=== PATIENT | male | born 1970 | race Caucasian/White ===

== ENCOUNTER 2024-02-22 19:03 | Inpatient (IN) | payer BC, SELFPAY ==
[2024-02-22] VITALS (11 sets, daily range): BP systolic 105–131; BP diastolic 64–78; PULSE 87–105; RESP 16–18; TEMP 36.6–36.8; O2SAT 92–98; BMI 35.5
--- NOTE | 2024-02-22 19:36 | EKG12_ITS ---
Test Reason : EDEMA Blood Pressure : / mmHG Vent. Rate : 090 BPM Atrial Rate : 090 BPM P-R Int : 144 ms QRS Dur : 088 ms QT Int : 360 ms P-R-T Axes : 016 -10 025 degrees QTc Int : 440 ms Normal sinus rhythm Normal ECG Confirmed by BRIGIDA KHAN, TIFFANI ([id number]), video news editor CECIL LOPEZ ([id number]) on 02/23/2024 1:52:37 PM Referred By: Confirmed By:TIFFANI ALLRED MD
--- NOTE | 2024-02-22 19:37 | EDS_ITS ---
HPI History of Present Illness Chief Complaint: Edema Detail of Chief Complaint: Leg swelling and shortness of breath Informant: patient Narrative Narrative: Patient presents with leg swelling that has had for several weeks. Patient also has been more short of breath with activity and exertion in that time.. Patient also is a heavy drinker and would drink 20 fireball shots a day for 3 to 4 weeks. Patient states now he is trying to cut back and drinking 3 hard mikes lemonade's that are tall daily. recently noticed that he is got some yellow around his eyes. Patient today noticed some increased abdominal distention. Patient would like to detox from alcohol. Has had multiple detox attempts in the past. He denies chest pain. He denies orthopnea. Denies recent travel or surgery. No heart history and no history of CHF. [facility] Medical History (Updated 02/22/24 @ 22:[address] Di Ahuja DO) Alcoholism Hypertension Hyperlipidemia Allergy/AdvReac Type Severity Reaction Status Date / Time lisinopril Allergy Mild COUGH Verified 02/22/24 19:07 Family History no significant family his Surgical History (Updated 02/22/24 @ 19:56 by Helen Zimmerman) History of splenectomy Social History (Updated 02/22/24 @ 19:55 by Helen Zimmerman) household members: spouse housing: house Smoking Status: Current some day smoker tobacco type: cigarettes ROS ROS ED Review of Systems ROS Unobtainable: other Constitutional Constitutional ED: Reports lethargy; Denies chills, fever(s), sweats or weight loss Eyes Eyes: Reports other Details: Yellow discoloration ; Denies blurry vision, change in vision or diplopia ENT ENT ED: Denies rhinorrhea or sore throat Cardiovascular Cardiovascular: Denies chest pain, orthopnea or racing heartbeat Respiratory/Chest Respiratory/Chest: Reports dyspnea and dyspnea on exertion; Denies cough, ort hopnea or sputum Gastrointestinal Gastrointestinal: Reports nausea and other Details: Abdominal distention ; Denies abdominal pain, diarrhea or vomiting Genitourinary Genitourinary ED: Denies dysuria, hematuria or urinary frequency Musculoskeletal Musculoskeletal: Denies arthralgias, back pain, myalgias or neck pain Integumentary Denies abscess, Abrasions or rash Neurologic Neurologic: Denies headache(s) or weakness Psychiatric Psychiatric: Denies anxiety, depression or suicidal thoughts Endocrine Endocrinology: Denies polydipsia, polyphagia or polyuria Hematologic/Lymphatic Hematologic/Lymphatic: Denies easy bleeding, easy bruising or lymphadenopathy Allergic/Immunologic Allergic/Immunologic ED: Denies mouth swelling, tongue swelling or urticaria EXAM Physical Exam Const Vital Signs: 02/22/24 19:04 02/22/24 19:06 02/22/24 19:55 Temperature 98.2 F 98.2 F Temperature Source Temporal Temporal Pulse Rate 100 102 H Respiratory Rate 17 16 Respiratory Pattern Normal Blood Pressure 105/67 105/67 Blood Pressure Mean 79 79 Pulse Ox 95 94 Oxygen Delivery Method Room Air Room Air 02/22/24 20:09 02/22/24 21:00 02/22/24 22:00 Temperature Temperature Source Pulse Rate 93 105 H 89 Respiratory Rate 18 17 18 Respiratory Pattern Blood Pressure 115/72 131/77 H 119/73 Blood Pressure Mean 86 95 88 Pulse Ox 96 98 96 Oxygen Delivery Method Room Air Room Air Positive well nourished and well developed General Appearance ED: well developed and NAD HEENT Reports TM's clear and moist mucous membranes HEENT Narrative: Mild scleral icterus normocephalic and atraumatic; Negative for trauma or tenderness Tympanic Membrane ED: Yes TM's clear Eyes PERRL and EOMs intact bilaterally Eyes Narrative: Mild scleral icterus General Eye ED: Negative for pale conjunctiva or scleral icterus Neck no lymphadenopathy, supple and no JVD General: Negative for tenderness Chest Wall inspection of chest normal and palpation of chest normal Chest: Negative for tenderness Resp normal respiratory effort and clear to auscultation bilaterally Effort and Inspection: Negative for respiratory distress or pain with movement Auscultation: Negative for rhonchi, wheezes or diminished lung sounds Cardio regular rate, regular rhythm, S1 normal heart sound, S2 normal heart sound and no murmurs Peripheral Pulses: pulses 2+ throughout GI normal to inspection, nondistended, normoactive bowel sounds, soft to palpation, non-distended and no masses GI Narrative: Abdomen distended and slightly tender throughout. There is no rebound, rigidity, or peritoneal signs. Mild fluid wave. Back/Spine no CVA tenderness and no thoracic nor lumbar tenderness Extremity Extremity Narrative: +2 edema both lower extremities General Extremety ED: Negative for edema General Extremity: Negative for edema Neuro oriented x3, CN's II-XII intact bilaterally, no sensory deficits noted and gait normal Sensorium / Orientation: awake, alert, oriented to person, oriented to place and oriented to time Motor Exam: strength 5/5 throughout and strength abnormal Psych mental status grossly normal Skin no rashes or lesions noted and no wounds MDM MDM MDM Narrative Medical decision making narrative: Patient presents requesting detox from alcohol. Also complains of dyspnea has been ongoing especially with exertion. No chest pain. Patient is an alcoholic and has gone through detox multiple times in the past. Denies recent surgery or travel. No history of PE or DVT. In the differential would be PE or DVT, CHF, renal failure, cirrhosis of the liver with ascites, obstructive biliary pattern. IV line established. CBC with differential white count 12.9 with hemoglobin 11.2 and platelet count of 154. Chemistries show low sodium of 122 with potassium 3.6 and chloride of 88. BUN 10 and creatinine 1.12. Glucose elevated to 66. Total bilirubin was 5.4. Alkaline phosphatase was 1072. ALT and AST p ending. Troponin was normal at 9. BNP was normal at 53. Albumin was low at 1.7. Lipase is low at 45. Urinalysis unremarkable. Toxicology screen negative. Alcohol was 72. We obtained a CT scan of the abdomen pelvis with IV contrast that showed small amount of ascites, absent spleen, and fatty infiltration of the liver without cirrhosis being excluded. Chest x-ray unremarkable. Venous Doppler of lower extremities was negative for DVT. Patient received a milligram of Ativan as he was complaining of feeling claustrophobic so therefore I gave him a milligram prior to obtaining the CT sca n of the abdomen pelvis. Case will be discussed with hospitalist to evaluate patient for admission Lab Data Attestation: I reviewed the patient's lab results. Labs: Laboratory Results - last 24 hr 02/22/24 02/22/24 19:40 21:32 WBC 12.9 H RBC 3.24 L Hgb 11.2 L Hct 31.2 L MCV 96.3 H MCH 34.6 H MCHC 35.9 RDW Std Deviation 62.4 H RDW Coeff of Pérez 17.9 H Plt Count 154 MPV 11.6 Immature Gran % (Auto) 2.300 H Neut % (Auto) 61.9 Lymph % (Auto) 25.4 [place] % (Auto) 9.4 Eos % (Auto) 0.5 Baso % (Auto) 0.5 Absolute Neuts (auto) 8.0 H Absolute Lymphs (auto) 3.26 Nucleated RBC % 0.5 Platelet Estimate ADEQUATE Plt Morphology Comment LARGE RBC Morphology N CHROM Anisocytosis 1+ Macrocytosis 1+ Ovalocytes RARE Sodium 122 L Potassium 3.6 Chloride 88 L Carbon Dioxide 22.0 Anion Gap 12 BUN 10 Creatinine 1.12 Estim Creat Clear Calc 81.45 Est GFR (MDRD) Af Amer 87 Est GFR (MDRD) Non-Af 72 BUN/Creatinine Ratio 8.9 L Glucose 266 H Calcium 7.8 L Total Bilirubin 5.40 H Alkaline Phosphatase 1072 H Troponin I High Sens 9 B-Natriuretic Peptide 53.4 Total Protein 5.1 L Albumin 1.7 L Globulin 3.4 Albumin/Globulin Ratio 0.5 L Lipase 45 Urine Color Yellow Urine Clarity Sl. Cloudy Urine pH 6.5 Ur Specific [place] 1.005 Urine Protein Negative Urine Glucose (UA) Normal Urine Ketones Negative Urine Occult Blood Negative Urine Nitrite Negative Urine Bilirubin 1 H Urine Urobilinogen 1 H Ur Leukocyte Esterase Negative Urine RBC 0 SEEN Urine WBC 0-5 SEEN Ur Squamous Epith Cells 0 SEEN Urine Bacteria RARE Urine Mucus 0 SEEN Urine Opiates Screen NEGATIVE Urine Methadone Screen NEGATIVE Ur Barbiturates Screen NEGATIVE Ur Phencyclidine Scrn NEGATIVE Ur Amphetamines Screen NEGATIVE MDMA (Ecstasy) Screen NEGATIVE U Benzodiazepines Scrn NEGATIVE Urine Cocaine Screen NEGATIVE U Cannabinoids Screen NEGATIVE Ur Drug Screen Comment Ethyl Alcohol 72.0 Radiography Diagnostic Testing: Clinical Impression(s) from Imaging Studies Venous Duplex 02/22/24 19:38 IMPRESSION: No evidence of DVT. Electronically Signed: Ernst Negrete MD at 20:51 EDT , Chest X-Ray 02/22/24 19:52 IMPRESSION: Normal x-ray examination of the chest. Electronically Signed: Ernst Negrete MD at 20:49 EDT , Abdomen/Pelvis CT 02/22/24 20:50 IMPRESSION: 1. Mild ascites in all quadrants. 2. Abnormal liver with fatty infiltration. Cirrhosis is not excluded. 3. Absent spleen. Electronically Signed: Ernst Negrete MD at 22:07 EDT , 1 view chest x-ray obtained interpreted by myself as no evidence of infiltrate or pneumothorax or acute disease process. Radiology in agreement. EKG Initial EKG: Attestation: I personally reviewed and interpreted this EKG as follows: Comments: Sinus rhythm with ventricular rate of 90 bpm with no acute ST segment changes Discharge Plan Triage Chief Complaint: Edema ED Provider: Di Ahuja Dx/Rx/DC Orders Clinical Impression: Alcohol abuse, Admitted to alcohol detoxification center, Acute hyponatremia, Cirrhosis of liver, Hyperbilirubinemia Primary Care Provider: Monalisa Mclaughlin Referrals: Monalisa Mclaughlin MD [Primary Care Provider] - Print Language: Kiswahili Disposition Disposition: Acute Care Hospital [facility]
--- NOTE | 2024-02-22 19:38 | US_ITS ---
STUDY: VENOUS DOPPLER ULTRASOUND - BILATERAL LOWER EXTREMITIES REASON FOR EXAM: Male, 54 years old. BILATERAL SWELLING TECHNIQUE: Ultrasound evaluation of the deep vein system to include hernandez-scale imaging and compression was performed. Hernandez-scale imaging and Doppler sonographic evaluation, including duplex spectral analysis and qualitative color flow sonography, was performed. COMPARISON: None. FINDINGS: RIGHT LEG Common Femoral Vein: Normal compression, spontaneity and augmentation. Normal color Doppler. Common Femoral Vein/Greater Saphenous Junction: Normal compression, spontaneity and augmentation. Normal color Doppler. Femoral Proximal: Normal compression, spontaneity and augmentation. Normal color Doppler. Femoral Middle: Normal compression, spontaneity and augmentation. Normal color Doppler. Femoral Distal: Normal compression, spontaneity and augmentation. Normal color Doppler. Popliteal Vein: Normal compression, spontaneity and augmentation. Normal color Doppler. Posterior Tibial Vein: Normal compression, spontaneity and augmentation. Normal color Doppler. Peroneal Vein: Normal compression, spontaneity and augmentation. Normal color Doppler. LEFT LEG Common Femoral Vein: Normal compression, spontaneity and augmentation. Normal color Doppler. Common Femoral Vein/Greater Saphenous Junction: Normal compression, spontaneity and augmentation. Normal color Doppler. Femoral Proximal: Normal compression, spontaneity and augmentation. Normal color Doppler. Femoral Middle: Normal compression, spontaneity and augmentation. Normal color Doppler. Femoral Distal: Normal compression, spontaneity and augmentation. Normal color Doppler. Popliteal Vein: Normal compression, spontaneity and augmentation. Normal color Doppler. Posterior Tibial Vein: Normal compression, spontaneity and augmentation. Normal color Doppler. Peroneal Vein: Normal compression, spontaneity and augmentation. Normal color Doppler. US/Venous Duplex Imag/Andrés Extrem IMPRESSION: No evidence of DVT. Electronically Signed: Ernst Negrete MD at 20:51 EDT ,
[2024-02-22] MEDS: 0.9% Normal Saline (1000mL) 1,000 ML 15 ML IV (19:45)
[2024-02-22] MEDS: Ondansetron 4 MG/2 ML Vial IV (19:45)
[2024-02-22 19:51] LABS: Absolute Lymphocyte Count 3.26 X10^3/uL (0.83-4.51); Basophil# 0.07 X10^3/uL; Basophil% 0.5 % (0-1); Eosinophil# 0.06 X10^3/uL; Eosinophils% 0.5 % (0-5); Hematocrit 31.2 % (40-54); Hemoglobin 11.2 g/dL (13.0-16.5); Lymphocyte # 3.26 X10^3/ul (0.83-4.51); Lymphocyte % 25.4 % (19-41); Mean Corp Hgb Conc 35.9 g/dL (32-36); Mean Corpuscular Hgb 34.6 pg (27.0-32.0); Mean Corpuscular Volume 96.3 fL (80-94); Mean Platelet Vol. 11.6 fl (6.2-12.0); Monocyte# 1.21 X10^3/uL; Monocyte% 9.4 % (0-10); NRBC Flagged by Analyzer 0.5 % (0-5); Neutrophil # 7.96 X10^3/uL (2.7-7.7); Neutrophil % 61.9 % (47-70); POSITIVE MORPHOLOGY YES; Platelet Count 154 K/mm3 (150-450); RBC Distribution Width CV 17.9 % (11.6-14.6); RBC Distribution Width SD 62.4 fl (35.1-43.9); Red Blood Count 3.24 M/mm3 (4.6-6.2); White Blood Count 12.9 K/mm3 (4.4-11.0)
--- NOTE | 2024-02-22 19:52 | RAD_ITS ---
STUDY: X-RAY CHEST REASON FOR EXAM: Male, 54 years old. dyspnea TECHNIQUE: Single PA view of the chest. COMPARISON: None. FINDINGS: The lungs are clear and expanded. There is no demonstrated pleural abnormality. Normal size heart. Normal mediastinum and summer. Normal visualized pulmonary arteries. Normal visualized aortic arch and descending thoracic aorta. Normal visualized thoracic spine. Normal visualized ribs, clavicles, and shoulders. There is no demonstrated abnormality of the visualized soft tissue structures of the upper abdomen. RAD/Chest 1 View (Portable) IMPRESSION: Normal x-ray examination of the chest. Electronically Signed: Ernst Negrete MD at 20:49 EDT ,
[2024-02-22 20:10] LABS: Differential Indicated SCAN CRITERIA MET
[2024-02-22 20:14] LABS: Anisocytosis 1+; Macrocytosis 1+; Ovalocyte RARE; Platelet Estimate ADEQUATE (ADEQ); Platelet Morphology LARGE; Red Cell Morphology N CHROM NORMAL (NORM C&C)
[2024-02-22 20:23] LABS: BNP,B-Type NATRIURETIC PEPTIDE 53.4 pg/mL (0-100)
--- NOTE | 2024-02-22 20:50 | CT_ITS ---
EXAM: CT ABDOMEN AND PELVIS WITH INTRAVENOUS CONTRAST CLINICAL INDICATION: ABDOMINAL DISTENTION TECHNIQUE: Helically acquired images were obtained of the abdomen and pelvis with intravenous contrast. This CT exam was performed using one or more of the following dose reduction techniques: automated exposure control, adjustment of the mA and/or kV according to patient size, and/or use of iterative reconstruction technique. CONTRAST: IV 100mL [id number] RADIATION DOSE: CTDIvol = 16.66 mGy, DLP = 1192.22 mGy-cm COMPARISON: No relevant prior studies available. FINDINGS: LOWER THORAX: Unremarkable. Lung bases are clear. No cardiomegaly. No significant pericardial effusion. ABDOMEN: LIVER: Fatty infiltration of the liver with hepatomegaly and coarsened parenchymal pattern. Question cirrhosis. GALLBLADDER AND BILE DUCTS: Cholecystectomy. No intra- or extrahepatic biliary ductal dilation. PANCREAS: Unremarkable. No focal cystic or solid mass. SPLEEN: Spleen is absent except for a probable 2.3 cm splenule under the left hemidiaphragm. ADRENALS: Unremarkable. No nodules. KIDNEYS AND URETERS: No acute abnormalities of the kidneys. Left kidney has small simple cysts as much as 2.5 cm. Tiny nonobstructing stone in the upper pole of the left kidney. Normal renal size and position. STOMACH AND BOWEL: Evaluation of the GI tract is limited by absence of oral contrast. Cannot exclude stomach wall thickening. No dilated loops of bowel or evidence for obstruction. Cannot exclude segmental thickening of the gomez of the small or large bowel. Cannot exclude enteritis or colitis. Moderate diffuse fecal retention. Diverticulosis without definite diverticulitis. PELVIS: APPENDIX: No evidence of acute appendicitis. BLADDER: Unremarkable. REPRODUCTIVE: Unremarkable as visualized. No mass. ABDOMEN and PELVIS: INTRAPERITONEAL SPACE: Mild ascites in all quadrants. No free air. BONES/JOINTS: Compression fracture of T11 likely old. No suspicious lytic or blastic abnormality. SOFT TISSUES: Small fat-containing right inguinal hernia. VASCULATURE: Calcified plaque of the aorta. Abdominal aorta is non-dilated. LYMPH NODES: Unremarkable. No enlarged lymph nodes. CT/Abdomen/Pelvis W IV Cont ONLY IMPRESSION: 1. Mild ascites in all quadrants. 2. Abnormal liver with fatty infiltration. Cirrhosis is not excluded. 3. Absent spleen. Electronically Signed: Ernst Negrete MD at 22:07 EDT ,
[2024-02-22 21:06] LABS: ALB/GLOB Ratio 0.5 RATIO (0.9-2.4); Albumin, Serum 1.7 g/dL (3.2-5.0); Alkaline Phosphatase 1072 U/L (45-117); Anion Gap 12 (5-15); BUN 10 mg/dL (7-18); BUN/Creat Ratio 8.9 RATIO (10-20); Calcium,Total 7.8 mg/dL (8.5-10.1); Chloride 88 mmol/L (98-107); Creatinine, Serum 1.12 mg/dL (0.70-1.30); EST Glomerular Filtration Rate 72 mL/min (>60); Est Glom Filt Rate - Afr Amer 87 mL/min (>60); Estimated Creatinine Clearance 81.45 ml/min; Globulin 3.4 g/dL (2.2-4.2); Glucose 266 mg/dL (74-106); Lipase 45 U/L (13-75); Potassium 3.6 mmol/L (3.5-5.1); Protein, Total 5.1 g/dL (6.4-8.2); Sodium Level 122 mmol/L (136-145); Troponin-I HS 9 pg/mL (3.0-78.0)
[2024-02-22] MEDS: LORazepam 2 MG/ML Syringe 1 MG IV (21:25)
[2024-02-22 21:36] LABS: Mucous, Urine 0 SEEN /hpf (<or=2+); Red Blood Cells-Urine 0 SEEN /hpf (0-5); Squamous Epithelial Cells - UA 0 SEEN /hpf (0-5)
[2024-02-22 21:41] LABS: Color, Urine Yellow (Yellow); Glucose, Dipstick Normal (Normal); Ketone-Dipstick Negative (Negative); Leukocyte Esterase-Dipstick Negative /ul (Negative); Nitrite-Dipstick Negative (Negative); Occult Blood-Urine Negative /ul (Negative); Protein-Dipstick Negative (Negative); Specific Gravity, Urine 1.005 (1.002-1.030); Urine Clarity Sl. Cloudy (Clear); Urine Urobilinogen 1 mg/dl (Normal); Urine pH 6.5 (5.0 - 8.0)
[2024-02-22 21:58] LABS: Urine Bilirubin Dipstick 1 mg/dL (Negative)
[2024-02-22 22:01] LABS: Bacteria RARE /hpf (None Seen); White Blood Cells 0-5 SEEN /hpf (0-5)
[2024-02-22 22:03] LABS: Amphetamine Urine VISTA NEGATIVE (<1000 ng/mL); Barbiturate Urine VISTA NEGATIVE (< 200 ng/mL); Benzodiazepine Urine VISTA NEGATIVE (< 200 ng/mL); Cocaine Urine VISTA NEGATIVE (< 300 ng/mL); Ecstacy Urine VISTA NEGATIVE (< 500 ng/mL); Methadone Urine VISTA NEGATIVE (< 300 ng/mL); PCP Urine VISTA NEGATIVE (< 25 ng/mL); THC Urine VISTA NEGATIVE (< 50 ng/mL); Vista UDS pH Range 6
--- NOTE | 2024-02-22 22:29 | PCM.HP.STD ---
HPI - General General Date of Admission: 02/22/24 Date of Service: 02/22/24 Chief Complaint: Abdominal distention, edema, scleral yellowing. HPI Narrative The patient is a 54 y/o M w/ PMHx: Anxiety and Depression, EtOH abuse (20 Fireball shots daily prior, now decreased to ~ 3 mikes hard lemonades daily) who presents to the [facility] ED on 02/22/24 with history of several weeks of fatigue and malaise as well as worsening lower extremity swelling and dyspnea worse with activity as well as some increased abdominal girth/distention in addition to mild scleral icterus prompting to bring him in for evaluation for possible consideration detoxification with multiple attempts previously. Workup in the ED included T98.2, heart 100, BP 105/67, respiratory rate 17, 95% room air with most recent repeat vital signs heart rate 89, BP 119/73, respiratory rate 18, 96% on room air, CBC with WC 12.9, hemoglobin 11.2, MCV 96.3, platelet 154 with increased immature granulocytes/left shift, CMP with sodium 122, chloride 88, glucose 266, calcium 7.8, T. bili 5.40, AST/ALT 157/117, alk phos 1072, BNP 53.4, troponin 9, urinalysis unremarkable, UDS negative, ethyl alcohol 72, bilateral lower extremity venous duplex ultrasounds with no evidence of any DVT, chest x-ray with no acute cardiopulmonary findings, CT abdomen and pelvis with IV contrast with mild ascites in all quadrants, abnormal liver with fatty infiltration with cirrhosis not excluded, absent spleen. In the ED patient administered Ativan 1 mg IV x 1 as well as Zofran 4 mg IV x 1. [facility] Medical History (Updated 02/22/24 @ 22:[address] Yolanda Chand MD) Anxiety and depression Diabetes mellitus, type 2 Tobacco use Obesity Alcoholism Hypertension Hyperlipidemia Home Medications ?Medication ?Instructions ?Recorded ?Last Taken ?Type bupropion HCl 150 mg 24 hr tablet, 150 mg PO 1XD 02/22/24 Unknown History extended release esomeprazole magnesium 20 mg 20 mg PO DAILY 02/22/24 Unknown History capsule,delayed release (Nexium 24HR) Allergy/AdvReac Type Severity Reaction Status Date / Time lisinopril Allergy Mild COUGH Verified 02/22/24 19:07 Family History (Updated 02/23/24 @ 00:[address] Yolanda Chand MD) Mother No problems noted. Family History no significant family his other (Denies any marked maternal family history. Does not know his paternal family or his medical history.) Surgical History (Updated 02/23/24 @ 00:[address] Yolanda Chand MD) S/P arthroscopic surgery of left knee H/O arthroscopy of shoulder S/P appendectomy S/P laparoscopic cholecystectomy History of splenectomy Social History (Updated 02/23/24 @ 00:[address] Yolanda Chand MD) household members: spouse housing: house Smoking Status: Current some day smoker tobacco type: cigarettes Electronic Cigarette Use: with nicotine alcohol intake: current alcohol intake frequency: 3 or more drinks per day substance use type: does not use ROS ROS Narrative Admission Review of Systems: CONSTITUTIONAL: No weight loss, fever, chills, + weakness or fatigue. HEENT: + Scleral icterus. Eyes: No visual loss, blurred vision, double vision. Ears, Nose, Throat: No hearing loss, sneezing, congestion, runny nose or sore throat. SKIN: No rash or itching, lesions, wounds. CARDIOVASCULAR: + Edema. No chest pain, chest pressure or chest discomfort, palpitations, orthopnea, syncopal events. RESPIRATORY: + Dyspnea. No cough or sputum, wheezing, hemoptysis. GASTROINTESTINAL: + Abdominal distention, discomfort. No anorexia, nausea, vomiting, diarrhea, melena, BRBPR. GENITOURINARY: No dysuria, frequency, urgency or retention. NEUROLOGICAL: No headache, dizziness, syncope, paralysis, ataxia, numbness or tingling in the extremities, focal weakness, change in bowel or bladder control, seizure. MUSCULOSKELETAL: + muscle, back pain, joint pain or stiffness. HEMATOLOGIC: + Chronic anemia, easy bleeding/bruising. LYMPHATICS: No enlarged nodes. No history of splenectomy. PSYCHIATRIC: + History of anxiety and depression. ENDOCRINOLOGIC: No reports of sweating, cold or heat intolerance. No polyuria or polydipsia. ALLERGIES: No history of asthma, hives, eczema or rhinitis. Vital Signs Vital Signs Vital Signs: 02/22/24 19:04 02/22/24 19:06 02/22/24 19:55 Temperature 98.2 F 98.2 F Temperature Source Temporal Temporal Pulse Rate 100 102 H Respiratory Rate 17 16 Respiratory Pattern Normal Blood Pressure 105/67 105/67 Blood Pressure Mean 79 79 Pulse Ox 95 94 Oxygen Delivery Method Room Air Room Air 02/22/24 20:09 02/22/24 21:00 02/22/24 22:00 Temperature Temperature Source Pulse Rate 93 105 H 89 Respiratory Rate 18 17 18 Respiratory Pattern Blood Pressure 115/72 131/77 H 119/73 Blood Pressure Mean 86 95 88 Pulse Ox 96 98 96 Oxygen Delivery Method Room Air Room Air Weight Weight: 220 lb Body Mass Index (BMI) 35.5 Physical Exam Narrative Physical Examination: General: Awake, alert, oriented x 3 and cooperative, laying flat in the ED bed, no acute distress. Skin: Normal color, normal turgor, no cyanosis, occasional staged ecchymoses, mild bilateral lower extremity venous stasis skin changes HEENT: AT/NC, EOMI, PERRLA, MMM, no carotid bruits or JVD noted; however, thickened neck makes evaluation difficult, mild bilateral scleral icterus present. Lungs: Diminished, greater bases, appropriate effort, no rales, ronchi or wheezing. Heart: Regular rate and rhythm; no gallop, rub audible. Abdomen: Soft, obese, NTTP, distended, mildly tympanitic, distant BS, difficult to assess HSM given distention and habitus. Extremities: No cyanosis, no clubbing, mild not markedly pitting edema from the distal shins to the feet. Neurological: Patient awake, alert, oriented as noted, cognitive function intact; pupils equally reactive to light and accommodation, cranial nerves grossly normal, moving all 4 extremities, no focal deficits, strength moderately globally decreased Psychiatric: Affect appears fatigued otherwise normal, no acute evidence of depressive or anxiety feelings but does have underlying history. Results Lab / Micro Data 02/22/24 19:40 02/22/24 19:40 Labs: Laboratory Results - last 24 hr 02/22/24 19:40: WBC 12.9 H, RBC 3.24 L, Hgb 11.2 L, Hct 31.2 L, MCV 96.3 H, MCH 34.6 H, MCHC 35.9, RDW Std Deviation 62.4 H, RDW Coeff of Pérez 17.9 H, Plt Count 154, MPV 11.6, Immature Gran % (Auto) 2.300 H, Neut % (Auto) 61.9, Lymph % (Auto) 25.4, [place] % (Auto) 9.4, Eos % (Auto) 0.5, Baso % (Auto) 0.5, Absolute Neuts (auto) 8.0 H, Absolute Lymphs (auto) 3.26, Nucleated RBC % 0.5, Platelet Estimate ADEQUATE, Plt Morphology Comment LARGE, RBC Morphology N CHROM, Anisocytosis 1+, Macrocytosis 1+, Ovalocytes RARE, Sodium 122 L, Potassium 3.6, Chloride 88 L, Carbon Dioxide 22.0, Anion Gap 12, BUN 10, Creatinine 1.12, Estim Creat Clear Calc 81.45, Est GFR (MDRD) Af Amer 87, Est GFR (MDRD) Non-Af 72, BUN/Creatinine Ratio 8.9 L, Glucose 266 H, Calcium 7.8 L, Total Bilirubin 5.40 H, Alkaline Phosphatase 1072 H, Troponin I High Sens 9, B-Natriuretic Peptide 53.4, Total Protein 5.1 L, Albumin 1.7 L, Globulin 3.4, Albumin/Globulin Ratio 0.5 L, Lipase 45, Ethyl Alcohol 72.0 02/22/24 21:32: Urine Color Yellow, Urine Clarity Sl. Cloudy, Urine pH 6.5, Ur Specific [place] 1.005, Urine Protein Negative, Urine Glucose (UA) Normal, Urine Ketones Negative, Urine Occult Blood Negative, Urine Nitrite Negative, Urine Bilirubin 1 H, Urine Urobilinogen 1 H, Ur Leukocyte Esterase Negative, Urine RBC 0 SEEN, Urine WBC 0-5 SEEN, Ur Squamous Epith Cells 0 SEEN, Urine Bacteria RARE, Urine Mucus 0 SEEN, Urine Opiates Screen NEGATIVE, Urine Methadone Screen NEGATIVE, Ur Barbiturates Screen NEGATIVE, Ur Phencyclidine Scrn NEGATIVE, Ur Amphetamines Screen NEGATIVE, MDMA (Ecstasy) Screen NEGATIVE, U Benzodiazepines Scrn NEGATIVE, Urine Cocaine Screen NEGATIVE, U Cannabinoids Screen NEGATIVE, Ur Drug Screen Comment Imaging Radiology Impression Venous Duplex 02/22/24 19:38 IMPRESSION: No evidence of DVT. Electronically Signed: Ernst Negrete MD at 20:51 EDT , Chest X-Ray 02/22/24 19:52 IMPRESSION: Normal x-ray examination of the chest. Electronically Signed: Ernst Negrete MD at 20:49 EDT , Abdomen/Pelvis CT 02/22/24 20:50 IMPRESSION: 1. Mild ascites in all quadrants. 2. Abnormal liver with fatty infiltration. Cirrhosis is not excluded. 3. Absent spleen. Electronically Signed: Ernst Negrete MD at 22:07 EDT , Assessment & Plan Assessment/Plan (1) Admitted to alcohol detoxification center: (2) Cirrhosis of liver: PLAN: Plan The patient is a 54 y/o M w/ PMHx: EtOH abuse (20 Fireball shots daily prior, now decreased to ~ 3 mikes hard lemonades daily) who presents to the [facility] ED on 02/22/24 with history of several weeks of fatigue and malaise as well as worsening lower extremity swelling and dyspnea worse with activity as well as some increased abdominal girth/distention in addition to mild scleral icterus prompting to bring him in for evaluation for possible consideration detoxification with multiple attempts previously. #1. Acute Worsened Ascites w/ Suspected Acute Decompensated Cirrhosis with significant possible Acute on Chronic EtOH Hepatitis-transaminitis/hyperbilirubinemia: Will admit to [place], maintain on low Na/DM diet, water 1500 ml restriction, lasix IV diuresis regimen w/ transition to oral regimen upon discharge, obtain NH level, will initiate low dose spirinolactone w/ transition upward outpatient, consult radiology for diagnostic and therapeutic paracentesis including SAAG gradient (albumin), cell count and differential, total protein concentration, culture, glucose LDH, gram stain, amyulase, cytology. NPO after midnight, coags already obtained for paracentesis in AM, patient will be evaluated by Perioperative Educator Dr. Beckham given significant hyperbilirubinemia and transaminitis for further evaluation recommendations. #2. Presumed acute hyponatremia on suspected chronic, likely alcohol abuse related in addition to decompensated cirrhosis as noted #1 but no additional labs for comparison: Admission CMP with sodium 122, chloride 88, placing on a fluid restriction and noted with plan diuresis and paracentesis, continue to trend CMP. If Na not improving with interventions as noted will need to further investigate. #3. Alcohol Abuse w/ impending EtOH Withdrawal: Given interest in sobriety, will initiate and continue on protocol with taper course of ativan given severity of hyperbilirubinemia/transaminitis as noted. Will consult Case management for assistance for transition to next level of rehabilitation care. Mag, phos pending. Maintain on CIWA protocol concurrently. #4. Diabetes mellitus type II: Hold oral home regimen, continue home insulin regimen, ADA diet, accu checks w/ ISS. #5. Hypertension: Continue home regimen including losartan, PRN hydralazine. #6. Hyperlipidemia: Given significant transaminitis/hyperbilirubinemia will temporarily hold patient home statin therapy. #7. Tobacco Abuse: Encouraged cessation, inpatient consultation per RT, NR if desired. #8. Obesity: Weight loss and lifestyle changes encouraged. #9. Anxiety and Depression: Clarifying patient mood disorder medications, will continue once obtained if appropriate given liver dysfunction as noted. Likely contributes to alcohol abuse as noted above, would benefit from outpatient counseling and further medication changes as needed. #10. DVT prophylaxis: SCDs. #11. CODE status: Patient HCPOA and living will are not in place but patient notes his would be his decision maker if necessary. Discussed CODE status at length including difference between FULL code, DNR-CCA and DNR-CC status. Following discussions about the differences in these status, requested Full Code status. Advanced Care Planning Face to Face Time: 16 minutes. Charges/Coding Visit Charges Inpatient E&M: 88266 Init Hosp L3 Procedures Hospitalists Procedures: 44559 Advncd Care Plan 30 Min
[2024-02-22 23:01] LABS: AST(SGOT) 157 U/L (15-37)
[2024-02-22 23:02] LABS: Alanine Aminotransfer ALT/SGPT 117 U/L (16-61)
[2024-02-22 23:20] LABS: Partial Thromboplast Time 32.8 Seconds (24.1-36.2); Prothrombin Time (Protime)PT. 13.6 SECONDS (11.7-14.9)
[2024-02-23] VITALS (10 sets, daily range): BP systolic 102–160; BP diastolic 58–100; PULSE 65–99; RESP 14–18; TEMP 35.8–36.7; O2SAT 93–98; BMI 40.6
[2024-02-23] MEDS: Potassium Phosphate 21 MM in 0.9% Normal Saline (250mL Bag) 250 ML 84 MM IV (01:45)
--- NOTE | 2024-02-23 02:12 | US_ITS ---
STUDY: ABDOMINAL ULTRASOUND - RIGHT UPPER QUADRANT REASON FOR VISIT: Male, 54 years old Ascites TECHNIQUE: Ultrasound evaluation of the 4 quadrants was performed with real-time and static joseph-scale imaging. TECHNICAL QUALITY: Adequate. COMPARISON: None. FINDINGS: The 4 quadrants were examined for assessment of ascites. There is only a small amount of ascites in the right upper quadrant. Not enough for safe paracentesis. US/Abdomen Limited IMPRESSION: Not enough ascites for safe paracentesis. Electronically Signed: Liu Hanna MD at 8:43 EDT ,
[2024-02-23 02:29] LABS: Magnesium 1.8 mg/dL (1.6-2.6); Phosphorus 0.8 mg/dL (2.5-4.9)
[2024-02-23] MEDS: Furosemide 40 MG/4 ML Vial IV (02:33)
[2024-02-23 02:59] LABS: Bedside Glucose 229 mg/dL (74-106)
[2024-02-23] MEDS: LORazepam 1 MG Tablet PO ×6 (03:05→22:04)
[2024-02-23] MEDS: Magnesium Sulfate 1 GM in Dextrose 5%-Water (100mL Bag) 100 ML IV (03:05)
[2024-02-23] MEDS: Insulin Lispro 100 UNIT/ML INSULN.PEN SC ×4 (06:25→21:59)
[2024-02-23 06:45] LABS: Bedside Glucose 248 mg/dL (74-106)
[2024-02-23 07:24] LABS: Absolute Lymphocyte Count 2.32 X10^3/uL (0.83-4.51); Absolute Neutrophil Count 5.3 X10^3/uL (2.0-7.7); Basophil# 0.07 X10^3/uL; Basophil% 0.8 % (0-1); Eosinophil# 0.07 X10^3/uL; Eosinophils% 0.8 % (0-5); Hematocrit 28.8 % (40-54); Hemoglobin 10.5 g/dL (13.0-16.5); Lymphocyte # 2.32 X10^3/ul (0.83-4.51); Lymphocyte % 26.6 % (19-41); Mean Corp Hgb Conc 36.5 g/dL (32-36); Mean Corpuscular Hgb 35.6 pg (27.0-32.0); Mean Corpuscular Volume 97.6 fL (80-94); Monocyte# 0.82 X10^3/uL; Monocyte% 9.4 % (0-10); NRBC Flagged by Analyzer 0.8 % (0-5); Neutrophil # 5.27 X10^3/uL (2.7-7.7); Neutrophil % 60.5 % (47-70); POSITIVE MORPHOLOGY YES; Platelet Count 178 K/mm3 (150-450); RBC Distribution Width CV 19.4 % (11.6-14.6); RBC Distribution Width SD 65.2 fl (35.1-43.9); Red Blood Count 2.95 M/mm3 (4.6-6.2); White Blood Count 8.7 K/mm3 (4.4-11.0)
[2024-02-23 07:40] LABS: Differential Indicated SCAN CRITERIA MET
--- NOTE | 2024-02-23 07:57 | NURSING ---
THIS RN ADVISED HAT PT FELL IN BR AND WAS ALREADY GETTING OFF THE FLOOR WHEN SOAKER NOTICED PT HAD FELL. VS OBTAINED AND PT DENIES PAIN AND NOT BRUSING NOTED AT THIS TIME. NO OPEN AREAS EITHER. DR GAITAN AWARE AND WILL SEE PT DR IS ON THE FLOOR.
[2024-02-23] MEDS: Thiamine Hydrochloride 100 MG Tablet PO (09:04)
[2024-02-23] MEDS: Multivitamins,Ther W-Minerals Tablet 1 TABLET PO (09:04)
[2024-02-23] MEDS: Folic Acid 1 MG Tablet PO (09:04)
[2024-02-23] MEDS: Pantoprazole Sodium 20 MG Tablet PO (09:04)
[2024-02-23] MEDS: buPROPion (XL) 150 MG TABLET.XL PO (09:04)
[2024-02-23 09:52] LABS: Differential Comment SCANNED; Macrocytosis 2+; Platelet Estimate ADEQUATE (ADEQ)
[2024-02-23 09:53] LABS: Target Cells 2+
[2024-02-23 09:55] LABS: Anisocytosis 3+; Microcytosis 1+
--- NOTE | 2024-02-23 09:55 | PN.HOSP_ITS ---
Reason for Visit Reason for Visit: Diagnoses Unspecified cirrhosis of liver (02/22/24) Objective Data Objective Data Vital Signs: Vital Signs Temp Pulse Resp BP Pulse Ox O2 Del Method 97.6 F L 92 16 104/61 95 Room Air 02/23/24 08:56 02/23/24 08:56 02/23/24 08:56 02/23/24 08:56 02/23/24 08:56 02/23/24 08:56 Oxygen Delivery Method Room Air Weight: 251 lb 8.759 oz Body Mass Index (BMI) 40.6 Intake & Output: Intake and Output for Last 24 Hours 02/21/24 02/22/24 02/23/24 23:59 23:59 23:59 Intake Total 707.25 / 707.25 Balance 707.25 / 707.25 Lab / Micro Data 02/23/24 06:07 02/23/24 12:45 Labs: Laboratory Results - last 24 hr 02/22/24 19:40: WBC 12.9 H, RBC 3.24 L, Hgb 11.2 L, Hct 31.2 L, MCV 96.3 H, MCH 34.6 H, MCHC 35.9, RDW Std Deviation 62.4 H, RDW Coeff of Pérez 17.9 H, Plt Count 154, MPV 11.6, Immature Gran % (Auto) 2.300 H, Neut % (Auto) 61.9, Lymph % (Auto) 25.4, [place] % (Auto) 9.4, Eos % (Auto) 0.5, Baso % (Auto) 0.5, Absolute Neuts (auto) 8.0 H, Absolute Lymphs (auto) 3.26, Nucleated RBC % 0.5, Platelet Estimate ADEQUATE, Plt Morphology Comment LARGE, RBC Morphology N CHROM, Anisocytosis 1+, Macrocytosis 1+, Ovalocytes RARE, PT 13.6, INR 1.0, APTT 32.8, Sodium 122 L, Potassium 3.6, Chloride 88 L, Carbon Dioxide 22.0, Anion Gap 12, BUN 10, Creatinine 1.12, Estim Creat Clear Calc 81.45, Est GFR (MDRD) Af Amer 87, Est GFR (MDRD) Non-Af 72, BUN/Creatinine Ratio 8.9 L, Glucose 266 H, Calcium 7.8 L, Phosphorus 0.8 L*, Magnesium 1.8, Total Bilirubin 5.40 H, AST 157 H, ALT 117 H, Alkaline Phosphatase 1072 H, Troponin I High Sens 9, B-Natriuretic Peptide 53.4, Total Protein 5.1 L, Albumin 1.7 L, Globulin 3.4, Albumin/Globulin Ratio 0.5 L, Lipase 45, Ethyl Alcohol 72.0 02/22/24 21:32: Urine Color Yellow, Urine Clarity Sl. Cloudy, Urine pH 6.5, Ur Specific [place] 1.005, Urine Protein Negative, Urine Glucose (UA) Normal, Urine Ketones Negative, Urine Occult Blood Negative, Urine Nitrite Negative, Urine Bilirubin 1 H, Urine Urobilinogen 1 H, Ur Leukocyte Esterase Negative, Urine RBC 0 SEEN, Urine WBC 0-5 SEEN, Ur Squamous Epith Cells 0 SEEN, Urine Bacteria RARE, Urine Mucus 0 SEEN, Urine Opiates Screen NEGATIVE, Urine Methadone Screen NEGATIVE, Ur Barbiturates Screen NEGATIVE, Ur Phencyclidine Scrn NEGATIVE, Ur Amphetamines Screen NEGATIVE, MDMA (Ecstasy) Screen NEGATIVE, U Benzodiazepines Scrn NEGATIVE, Urine Cocaine Screen NEGATIVE, U Cannabinoids Screen NEGATIVE, Ur Drug Screen Comment 02/23/24 00:33: Ammonia 98.0 H 02/23/24 02:30: POC Glucose 229 H 02/23/24 06:07: WBC 8.7, RBC 2.95 L, Hgb 10.5 L, Hct 28.8 L, MCV 97.6 H, MCH 35.6 H, MCHC 36.5 H, RDW Std Deviation 65.2 H, RDW Coeff of Pérez 19.4 H, Plt Count 178, MPV 13.0 H, Immature Gran % (Auto) 1.900 H, Neut % (Auto) 60.5, Lymph % (Auto) 26.6, [place] % (Auto) 9.4, Eos % (Auto) 0.8, Baso % (Auto) 0.8, Absolute Neuts (auto) 5.3, Absolute Lymphs (auto) 2.32, Nucleated RBC % 0.8 02/23/24 06:23: POC Glucose 248 H Radiography Diagnostic Testing: Radiology Impression Venous Duplex 02/22/24 19:38 IMPRESSION: No evidence of DVT. Electronically Signed: Ernst Negrete MD at 20:51 EDT , Chest X-Ray 02/22/24 19:52 IMPRESSION: Normal x-ray examination of the chest. Electronically Signed: Ernst Negrete MD at 20:49 EDT , Abdomen/Pelvis CT 02/22/24 20:50 IMPRESSION: 1. Mild ascites in all quadrants. 2. Abnormal liver with fatty infiltration. Cirrhosis is not excluded. 3. Absent spleen. Electronically Signed: Ernst Negrete MD at 22:07 EDT , Abdomen Ultrasound 02/23/24 02:12 IMPRESSION: Not enough ascites for safe paracentesis. Electronically Signed: Liu Hanna MD at 8:43 EDT , Physical Exam Narrative Seen and examined. Patient was drinking heavily 20 fireball shots of vodka every day before coming in admission. Has cirrhosis and patient knows it as he quoted that he has liver failure. Mild ascites around the liver. Lower extremity swelling and abdominal distention. Physical exam General: Alert, Oriented x3, Cooperative, morbid obesity BMI 40.6 kg/m? HEENT: Atraumatic, PERRLA, EOMI, Normocephalic. Face looks flushed. Oral: Oral mucosa dry. No Gingival or Mucosal Lesions/ Ulcerations Neck: Supple, No JVD, Negative Carotid Bruits Chest wall/Lungs: Air entry diminished in bilateral lung bases. No crepitation/rhonchi Cardiovascular: Regular rate, Regular Rhythm, Normal S1, Normal S2, No M/G/R Abdomen: Bowel Sounds Present, Soft, Non Tender, mild abdominal distention. Small fluid thrill present. : No dysuria. No renal angle tenderness. No suprapubic tenderness. Extremities: 2+ bilateral lower extremity pitting edema, Capillary Refill Less than 3 Seconds Skin: No rashes, No breakdown Musculoskeletal: No Tenderness to Palpation of Joints or Extremities Neurological: Cranial nerves II-XII grossly intact, DTR 2+/4. No acute focal neurological deficit. Psych/Mental Status: Flat affect. Assessment & Plan Assessment/Plan (1) Admitted to alcohol detoxification center: (2) Cirrhosis of liver: PLAN: Plan The patient is a 54 y/o with history of chronic alcohol use (20 Fireball shots daily prior, now decreased to ~ 3 mikes hard lemonades daily) came to ED with fatigue, progressive worsening of lower extremity swelling, dyspnea with exertion, increased abdominal distention suggestive of ascites and jaundice who presents to the [facility] ED on 02/22/24 with history of several weeks of fatigue and malaise as well as worsening lower extremity swelling and dyspnea worse with activity as well as some increased abdominal girth/distention in addition to mild scleral icterus prompting to bring him in for evaluation for possible consideration detoxification with multiple attempts previously. #1. Acute decompensated cirrhosis alcoholic with acute on chronic alcoholic hepatitis: Patient is being admitted on PCU. Dank's discussion factor is 8.2 therefore does not qualify for steroid therapy. Good prognosis. Discussed with the IR, Catrachita Barron and he stated no enough fluid for aspiration. Mild perihepatic ascites. #2. Presumed acute hyponatremia on suspected chronic, likely alcohol abuse related in addition to decompensated cirrhosis, low solute intake: Admission CMP with sodium 122, chloride 88, serum sodium increased to 127. calorie intake. #3. Alcohol Abuse w/ impending EtOH Withdrawal: On CIWA protocol. #4. Diabetes mellitus type II: Accu-Chek before meals and at bedtime with Humalog sliding scale coverage and hypoglycemia protocol. #5. Hypertension: Continue home regimen including losartan, PRN hydralazine. #6. Hyperlipidemia: Given significant transaminitis/hyperbilirubinemia will temporarily hold patient home statin therapy. #7. Tobacco Abuse: Encouraged cessation, inpatient consultation per RT, NR if desired. #8. Obesity: Weight loss and lifestyle changes encouraged. #9. Anxiety and Depression: Clarifying patient mood disorder medications, will continue once obtained if appropriate given liver dysfunction as noted. Likely contributes to alcohol abuse as noted above, would benefit from outpatient counseling and further medication changes as needed. #10. DVT prophylaxis: SCDs. #11. CODE status: Patient HCPOA and living will are not in place but patient notes his would be his decision maker if necessary. Discussed CODE status at length including difference between FULL code, DNR-CCA and DNR-CC status. Following discussions about the differences in these status, requested Full Code status. Charges/Coding Visit Charges Inpatient E&M: 59746 Subs Hosp L2
--- NOTE | 2024-02-23 11:23 | ADDICTION ---
Met with pt to complete RAMP assessments and d/c planning. Pt was alert for the assessment however he began falling asleep and snoring for the d/c planning. Will return tomorrow to complete.
[2024-02-23 11:58] LABS: Bedside Glucose 383 mg/dL (74-106)
[2024-02-23] MEDS: 0.9% Saline Lock 10 ML Syringe IV (12:50)
[2024-02-23 13:49] LABS: ALB/GLOB Ratio 0.6 RATIO (0.9-2.4); AST(SGOT) 116 U/L (15-37); Alanine Aminotransfer ALT/SGPT 74 U/L (16-61); Albumin, Serum 1.6 g/dL (3.2-5.0); Alkaline Phosphatase 957 U/L (45-117); Anion Gap 10 (5-15); BUN 10 mg/dL (7-18); BUN/Creat Ratio 8.3 RATIO (10-20); Calcium,Total 7.5 mg/dL (8.5-10.1); Chloride 92 mmol/L (98-107); EST Glomerular Filtration Rate 67 mL/min (>60); Est Glom Filt Rate - Afr Amer 81 mL/min (>60); Estimated Creatinine Clearance 81.59 ml/min; Globulin 2.7 g/dL (2.2-4.2); Glucose 329 mg/dL (74-106); Phosphorus 1.6 mg/dL (2.5-4.9); Potassium 4.1 mmol/L (3.5-5.1); Protein, Total 4.3 g/dL (6.4-8.2); Sodium Level 127 mmol/L (136-145)
[2024-02-23] MEDS: Spironolactone 25 MG Tablet PO (14:52)
[2024-02-23] MEDS: Na Biphos/Potassium Phosphate PACKET 1 PACKET PO ×2 (18:11→22:05)
[2024-02-23] MEDS: Lactulose 20 GM/30 ML UDC 10 GM PO ×2 (18:12→22:04)
[2024-02-23] MEDS: SimETHICONE 80 MG Chewable Tablet PO (18:12)
[2024-02-23 18:25] LABS: Bedside Glucose 323 mg/dL (74-106)
[2024-02-23 19:10] LABS: Bilirubin, Direct 2.96 mg/dL (0.00-0.30)
[2024-02-23] MEDS: Magnesium Chloride 64 MG Delay Rel.Tablet 128 MG PO (22:05)
[2024-02-23 22:30] LABS: Bedside Glucose 296 mg/dL (74-106)
[2024-02-24 02:00] VITALS: BP 95/73; PULSE 85; RESP 18; TEMP 36.6; O2SAT 95
[2024-02-24] MEDS: LORazepam 1 MG Tablet PO ×4 (02:20→14:26)
[2024-02-24] MEDS: Na Biphos/Potassium Phosphate PACKET 1 PACKET PO (06:23)
[2024-02-24] MEDS: Insulin Lispro 100 UNIT/ML INSULN.PEN SC ×2 (06:26→12:44)
[2024-02-24 06:51] LABS: Bedside Glucose 342 mg/dL (74-106)
[2024-02-24 07:40] LABS: Absolute Lymphocyte Count 2.27 X10^3/uL (0.83-4.51); Absolute Neutrophil Count 4.7 X10^3/uL (2.0-7.7); Basophil# 0.06 X10^3/uL; Basophil% 0.7 % (0-1); Eosinophil# 0.07 X10^3/uL; Eosinophils% 0.8 % (0-5); Hematocrit 28.5 % (40-54); Hemoglobin 10.1 g/dL (13.0-16.5); Lymphocyte # 2.27 X10^3/ul (0.83-4.51); Lymphocyte % 27.5 % (19-41); Mean Corp Hgb Conc 35.4 g/dL (32-36); Mean Corpuscular Hgb 34.7 pg (27.0-32.0); Mean Corpuscular Volume 97.9 fL (80-94); Mean Platelet Vol. 12.8 fl (6.2-12.0); Monocyte# 0.84 X10^3/uL; Monocyte% 10.2 % (0-10); NRBC Flagged by Analyzer 1.3 % (0-5); Neutrophil # 4.71 X10^3/uL (2.7-7.7); POSITIVE MORPHOLOGY YES; Platelet Count 132 K/mm3 (150-450); RBC Distribution Width CV 19.2 % (11.6-14.6); Red Blood Count 2.91 M/mm3 (4.6-6.2); White Blood Count 8.3 K/mm3 (4.4-11.0)
[2024-02-24 07:47] LABS: Differential Indicated SCAN CRITERIA MET
[2024-02-24 08:00] VITALS: BP 109/63; PULSE 91; RESP 16; TEMP 36.6; O2SAT 96
[2024-02-24] MEDS: Lactulose 20 GM/30 ML UDC 10 GM PO (09:30)
[2024-02-24] MEDS: Magnesium Chloride 64 MG Delay Rel.Tablet 128 MG PO (09:30)
[2024-02-24] MEDS: buPROPion (XL) 150 MG TABLET.XL PO (09:30)
[2024-02-24] MEDS: SimETHICONE 80 MG Chewable Tablet PO ×2 (09:30→12:44)
[2024-02-24] MEDS: Furosemide 40 MG Tablet PO (09:30)
[2024-02-24] MEDS: Spironolactone 25 MG Tablet PO (09:30)
[2024-02-24] MEDS: Folic Acid 1 MG Tablet PO (09:31)
[2024-02-24] MEDS: Thiamine Hydrochloride 100 MG Tablet PO (09:31)
[2024-02-24] MEDS: Multivitamins,Ther W-Minerals Tablet 1 TABLET PO (09:31)
[2024-02-24] MEDS: Pantoprazole Sodium 20 MG Tablet PO (09:32)
[2024-02-24 09:41] LABS: ALB/GLOB Ratio 0.5 RATIO (0.9-2.4); AST(SGOT) 126 U/L (15-37); Alanine Aminotransfer ALT/SGPT 94 U/L (16-61); Albumin, Serum 1.6 g/dL (3.2-5.0); Alkaline Phosphatase 1092 U/L (45-117); Anion Gap 10 (5-15); BUN 10 mg/dL (7-18); BUN/Creat Ratio 9.3 RATIO (10-20); Bilirubin, Direct 3.11 mg/dL (0.00-0.30); Chloride 93 mmol/L (98-107); Creatinine, Serum 1.07 mg/dL (0.70-1.30); EST Glomerular Filtration Rate 76 mL/min (>60); Est Glom Filt Rate - Afr Amer 92 mL/min (>60); Glucose 327 mg/dL (74-106); Potassium 3.5 mmol/L (3.5-5.1); Protein, Total 4.6 g/dL (6.4-8.2); Sodium Level 128 mmol/L (136-145)
[2024-02-24] MEDS: Glucerna Shake 120 ML LIQUID PO ×2 (09:47→14:26)
--- NOTE | 2024-02-24 10:10 | DCINST_ITS ---
Discharge Instructions Diet Discharge Diet: No restrictions Activity Discharge Activity: Return to Normal Activity Weight Bearing Status: Weight bearing as tolerated Dressing / Incision Call your doctor if you observe: Fever of 101 or Higher, Coldness, Increased Pain, Numbness or Tingling, Change in Color, Inability to urinate, Inability to have a bowel movement, Shortness of breath, Dizziness, Fainting spells, Swelling in the ankles, Chest pain, Prolonged hiccupping, Increased palpitations (irregular heartbeat) and Calf discomfort Follow Up Care When: IN 2 WEEKS Test Results: Test results from this visit will be discussed in further detail at your follow- up appointment, if applicable. Discharge Plan Admission Admit Date/Time: 02/22/24 22:52 Primary Reason for Your Visit: Decompensated alcoholic cirrhosis. Attending Provider: Elan Beckham Primary Care Provider: Monalisa Mclaughlin Consulting Providers: Yolanda Chand Discharge Orders/Prescriptions Prescriptions: New thiamine HCl (vitamin B1) 100 mg Tablet 100 mg PO DAILYCM Qty: 90 1RF spironolactone 25 mg Tablet 37.5 mg PO DAILY 30 Days Qty: 45 2RF Rx Instructions: Hold for serum potassium more than 5.0 furosemide 40 mg Tablet 40 mg PO DAILY 30 Days Qty: 30 1RF simethicone 80 mg Tablet,Chewable 80 mg PO TIDPC Qty: 30 0RF Rx Instructions: [id number] pantoprazole [Protonix] 40 mg tablet,delayed release (DR/EC) 40 mg PO BID 30 Days Qty: 30 2RF bupropion HCl 150 mg Tablet Extended Release 24 Hr 150 mg PO DAILY Qty: 0 0RF Discontinued bupropion HCl 150 mg tablet extended release 24 hr 150 mg PO 1XD esomeprazole magnesium [Nexium 24HR] 20 mg capsule,delayed release(DR/EC) 20 mg PO DAILY Referrals / Follow Up: Monalisa Mclaughlin MD [Primary Care Provider] - Elan Beckham MD [Med Staff - Active Staff] - Within 1 Month Disposition Disposition (needs filled in before D/C Order can be placed): Home, Self Care
[2024-02-24 11:00] LABS: Anisocytosis 2+; Differential Comment SCANNED; Macrocytosis 1+; Microcytosis 1+
--- NOTE | 2024-02-24 13:00 | DS.PCM_ITS ---
Providers Date of Admission: 02/22/24 Date of Discharge: 02/24/24 Primary Care Physician: Dr. Monalisa Mclaughlin MD Reason For Visit: ETOH DETOX, DECOMPP CIRRHOSIS Diagnosis Discharge Diagnosis (1) Admitted to alcohol detoxification center: Status: Acute (2) Cirrhosis of liver: Status: Acute Code(s): K74.60 - Unspecified cirrhosis of liver Plan The patient is a 54 y/o with history of chronic alcohol use (20 Fireball shots daily prior, now decreased to ~ 3 mikes hard lemonades daily) came to ED with fatigue, progressive worsening of lower extremity swelling, dyspnea with exertion, increased abdominal distention and several weeks of jaundice #1. Acute decompensated cirrhosis alcoholic with acute on chronic alcoholic hepatitis: Patient is being admitted on PCU. Angelateena's discussion factor is 8.2 therefore does not qualify for steroid therapy. Good prognosis. Discussed with the IR, Catrachita Barron and he stated no enough fluid for aspiration. Mild perihepatic ascites. 02/23: Patient has been debrided and abdominal distention is probably from fat and gas. Continue simethicone. Patient diuresis optimized and discharged on furosemide 40 mg daily and spironolactone 37.5 mg daily. Pantoprazole 40 mg daily. Discussed that he will need elective screening EGD for varices and HCC surveillance. Advised to follow-up in the GI office in a month. #2. Presumed acute hyponatremia on suspected chronic, likely alcohol abuse related in addition to decompensated cirrhosis, low solute intake: Admission CMP with sodium 122, chloride 88, serum sodium increased to 127. calorie intake. 02/23: Hyponatremia improved. It improved from 120-228. It was mainly hypotonic hypervolemic hyponatremia. Continue Ensure and solute intake. #3. Alcohol Abuse w/ impending EtOH Withdrawal: On CIWA protocol. 02/23: Advised to see [facility] alcohol rehab program and evaluate for Vivitrol injection. #4. Diabetes mellitus type II: Accu-Chek before meals and at bedtime with Humalog sliding scale coverage and hypoglycemia protocol. glucose is high in about 350 range. Metformin prescribed. Advised follow-up with PCP and recommend scheduled Humalog and long-acting insulin. #5. Hypertension: Continue home regimen including losartan, PRN hydralazine. #6. Hyperlipidemia: Given significant transaminitis/hyperbilirubinemia will temporarily hold patient home statin therapy. #7. Tobacco Abuse: Encouraged cessation, inpatient consultation per RT, NR if desired. #8. Obesity: Weight loss and lifestyle changes encouraged. #9. Anxiety and Depression: Clarifying patient mood disorder medications, will continue once obtained if appropriate given liver dysfunction as noted. Likely contributes to alcohol abuse as noted above, would benefit from outpatient counseling and further medication changes as needed. #10. DVT prophylaxis: SCDs. #11. CODE status: Patient HCPOA and living will are not in place but patient notes his would be his decision maker if necessary. Discussed CODE status at length including difference between FULL code, DNR-CCA and DNR-CC status. Following discussions about the differences in these status, requested Full Code status. Discharge medication reconciliation done. Discharge follow-up instructions completed. Discharge process discussed with the patient and all questions were answered to patient's satisfaction. Follow with PCP in 1 to 2 weeks Total time spent, exact 35 minutes on discharge meds reconciliation, examination, coordination of care with nurses and ancillary staff, review of imaging and blood test and discussion with the patient on follow-up instructions. Medications at Discharge Home Medications bupropion HCl 150 mg 24 hr tablet, extended release 150 mg PO DAILY #0 tabs 02/24/24 furosemide 40 mg tablet 40 mg PO DAILY 30 days #30 tabs 02/24/24 metformin 500 mg tablet 500 mg PO BID 3 months #180 tabs 02/24/24 pantoprazole 40 mg tablet,delayed release (Protonix) 40 mg PO BID 1 month #30 tabs 02/24/24 simethicone 80 mg chewable tablet 80 mg PO TIDPC #30 tabs 02/24/24 spironolactone 25 mg tablet 37.5 mg (1.5 x 25 mg) PO DAILY 30 days #45 tabs 02/24/24 thiamine HCl (vitamin B1) 100 mg tablet 100 mg PO DAILYCM #90 tabs 02/24/24 Weight / BMI Weight Weight: 251 lb 8.759 oz Body Mass Index (BMI) 40.6 ABG / Lab / Microbiology Data 02/24/24 06:11 02/24/24 06:11 Laboratory: Laboratory Results - last 24 hr 02/23/24 12:43: Direct Bilirubin 2.96 H 02/23/24 12:45: Sodium 127 L, Potassium 4.1, Chloride 92 L, Carbon Dioxide 25.0, Anion Gap 10, BUN 10, Creatinine 1.20, Estim Creat Clear Calc 81.59, Est GFR (MDRD) Af Amer 81, Est GFR (MDRD) Non-Af 67, BUN/Creatinine Ratio 8.3 L, Glucose 329 H, Calcium 7.5 L, Phosphorus 1.6 L, Total Bilirubin 4.70 H, AST 116 H, ALT 74 H, Alkaline Phosphatase 957 H, Total Protein 4.3 L, Albumin 1.6 L, Globulin 2.7, Albumin/Globulin Ratio 0.6 L 02/23/24 18:05: POC Glucose 323 H 02/23/24 21:58: POC Glucose 296 H 02/24/24 06:11: WBC 8.3, RBC 2.91 L, Hgb 10.1 L, Hct 28.5 L, MCV 97.9 H, MCH 34.7 H, MCHC 35.4, RDW Std Deviation 66.0 H, RDW Coeff of Pérez 19.2 H, Plt Count 132 L, MPV 12.8 H, Immature Gran % (Auto) 3.800 H, Neut % (Auto) 57.0, Lymph % (Auto) 27.5, [place] % (Auto) 10.2 H, Eos % (Auto) 0.8, Baso % (Auto) 0.7, Absolute Neuts (auto) 4.7, Absolute Lymphs (auto) 2.27, Nucleated RBC % 1.3, Differential Comment SCANNED, Anisocytosis 2+, Microcytosis 1+, Macrocytosis 1+, Sodium 128 L , Potassium 3.5, Chloride 93 L, Carbon Dioxide 25.0, Anion Gap 10, BUN 10, Creatinine 1.07, Estim Creat Clear Calc 91.50, Est GFR (MDRD) Af Amer 92, Est GFR (MDRD) Non-Af 76, BUN/Creatinine Ratio 9.3 L, Glucose 327 H, Calcium 8.0 L, Total Bilirubin 4.00 H, Direct Bilirubin 3.11 H, AST 126 H, ALT 94 H, Alkaline Phosphatase 1092 H, Total Protein 4.6 L, Albumin 1.6 L, Globulin 3.0, A lbumin/Globulin Ratio 0.5 L 02/24/24 06:25: POC Glucose 342 H D/C Instructions Discharge Diet: No restrictions Weight Bearing Status: Weight bearing as tolerated Call your doctor if you observe: Fever of 101 or Higher, Coldness, Increased Pain, Numbness or Tingling, Change in Color, Inability to urinate, Inability to have a bowel movement, Shortness of breath, Dizziness, Fainting spells, Swelling in the ankles, Chest pain, Prolonged hiccupping, Increased palpitations (irregular heartbeat) and Calf discomfort When: IN 2 WEEKS Meaningful Use Info Meaningful Use Meaningful Use Diagnoses (Choose all that apply): None applicable Ischemic Stroke Statin Dosing Therapy Reference: STATIN DOSE THERAPY REFERENCE: * Patients > 75 years receive moderate or high dose statin therapy. * Patients 75 years or YOUNGER should receive HIGH intensity statin dose unless contraindicated. You will be required to document reason for non-treatment if statin daily dose does not meet guidelines. HIGH DOSE STATIN THERAPY DAILY Atorvastatin > than or = to 40 mg Rosuvastatin > than or = to 20 mg Amlodipine + Atorvastatin > than or = to 2.5/40 mg Ezetimibe + Simvastatin 10/80 mg Simvastatin 80mg Discharge Plan Admission Admit Date/Time: 02/22/24 22:52 Primary Reason for Your Visit: Decompensated alcoholic cirrhosis. Attending Provider: Elan Beckham Primary Care Provider: Monalisa Mclaughlin Consulting Providers: Yolanda Chand Discharge Orders/Prescriptions Prescriptions: New thiamine HCl (vitamin B1) 100 mg Tablet 100 mg PO DAILYCM Qty: 90 1RF spironolactone 25 mg Tablet 37.5 mg PO DAILY 30 Days Qty: 45 2RF Rx Instructions: Hold for serum potassium more than 5.0 furosemide 40 mg Tablet 40 mg PO DAILY 30 Days Qty: 30 1RF simethicone 80 mg Tablet,Chewable 80 mg PO TIDPC Qty: 30 0RF Rx Instructions: [id number] pantoprazole [Protonix] 40 mg tablet,delayed release (DR/EC) 40 mg PO BID 30 Days Qty: 30 2RF bupropion HCl 150 mg Tablet Extended Release 24 Hr 150 mg PO DAILY Qty: 0 0RF metformin 500 mg tablet 500 mg PO BID 90 Days Qty: 180 1RF Discontinued bupropion HCl 150 mg tablet extended release 24 hr 150 mg PO 1XD esomeprazole magnesium [Nexium 24HR] 20 mg capsule,delayed release(DR/EC) 20 mg PO DAILY Referrals / Follow Up: Monalisa Mclaughlin MD [Primary Care Provider] - Within 2 Weeks (For management of diabetes melitis type II.) Elan Beckham MD [Med Staff - Active Staff] - Within 1 Month Disposition Disposition (needs filled in before D/C Order can be placed): Home, Self Care Charges/Coding Visit Charges Inpatient E&M: 81443 Disch Hosp >30min
[2024-02-24 13:05] LABS: Bedside Glucose 370 mg/dL (74-106)
--- NOTE | 2024-02-24 13:33 | ADDICTION ---
Met with pt to discuss d/c planning. He reports that his has all of these counselors lined up. Pt also reports that 'residential tx doesn't do anything for me. This worker discussed alternative tx options based on pt's readiness for change. He reports that he is willing to have an assessment at [facility] and might be willing to do IOP. He will go in for an assessment after discharge. Resources were given.
[2024-02-24 14:00] VITALS: BP 102/75; PULSE 86; RESP 16; TEMP 35.8; O2SAT 97
== END 2024-02-24 15:45 | disposition home or self-care (01) | DRG 433 ==
LOC: ED 22:22 → PCU 02-23 01:35
PROVIDERS: Admitting Provider Family Medicine; Emergency Provider Emergency Medicine; PCP Internal Medicine; Visit Provider Internal Medicine
DX: K70.31 Alcoholic cirrhosis of liver with ascites (principal); F10.139 Alcohol abuse with withdrawal, unspecified; E87.1 Hypo-osmolality and hyponatremia; K70.11 Alcoholic hepatitis with ascites; E11.9 Type 2 diabetes mellitus without complications; E66.01 Morbid (severe) obesity due to excess calories; I10 Essential (primary) hypertension; F32.A Depression, unspecified; E78.5 Hyperlipidemia, unspecified; F17.210 Nicotine dependence, cigarettes, uncomplicated; F41.9 Anxiety disorder, unspecified; Y90.3 Blood alcohol level of 60-79 mg/100 ml; Z68.35 Body mass index [BMI] 35.0-35.9, adult
CPT/HCPCS: 36415; 71045; 74177; 76705; 80053; 80307; 81001; 82077; 82140; 82248; 82962; 83690; 83735; 83880; 84100; 84484; 85025; 85610; 85730; 93005; 93970; 97802; 99285; 99406; J7030; J7050; Q9967; A4216; J1940; J2405